=== PATIENT | female | born 1970 | race Caucasian/White ===

== ENCOUNTER 2020-04-27 14:48 | Emergency (ER) | payer OTHER ==
[2020-04-27] MEDS ORDERED: Acetaminophen/HYDROcodone 325-5 MG Tab PO ONE (15:36)
[2020-04-27] MEDS ORDERED: Diphtheria,Pertussis(Acell),Tetanus Vaccine 0.5 ML SDV IM ONE (15:36)
[2020-04-27] MEDS ORDERED: Diphtheria,Pertussis(Acell),Tetanus Vaccine 0.5 ML Syringe ONE (15:40)
--- NOTE | 2020-04-27 16:07 | EDM.PDOC ---
ED HPI GENERAL MEDICAL PROBLEM - General Chief Complaint: Upper Extremity Injury/Pain Stated Complaint: FALL/RIB AND SHOULDER PAIN Time Seen by Provider: 04/27/20 14:49 Source of Information: Reports: Patient History Limitations: Reports: No Limitations - History of Present Illness INITIAL COMMENTS - FREE TEXT/NARRATIVE: HISTORY AND PHYSICAL: History of present illness: Patient is a 49-year-old female who presents to the emergency room with complaints of right shoulder and right rib pain post fall 9 days ago. She states she was getting up out of bed when she fell hitting her right side of her face, right shoulder and right lateral chest wall. She reports that the fall occurred in the middle of the night and "not sure what really happened". She has been taking Tylenol and ibuprofen [id number] and has no concerns with her head or facial bones. The right shoulder and right chest wall continue to be quite painful, concerned she could have fractures. Patient denies any fever, chills, headache, change in vision, syncope or near syncope. Denies any chest pain, back pain, shortness of breath or cough. Denies any abdominal pain, nausea, vomiting, diarrhea, constipation or dysuria. Has not noted any blood in urine or stool. Patient has been eating and drinking appropriately. Review of systems: As per history of present illness and below otherwise all systems reviewed and negative. Past medical history: As per history of present illness and as reviewed below otherwise noncontributory. Surgical history: As per history of present illness and as reviewed below otherwise noncontributory. Social history: See social history for further information Family history: As per history of present illness and as reviewed below otherwise noncontributory. Physical exam: General: Well developed and well nourished. Alert and orientated x 3. Nontoxic in appearance and in no acute distress. Vital signs are stable and have been reviewed by me. Nursing notes were reviewed. HEENT: Healing bruising and soft tissue swelling along the right side of face, jaw and neck. Mild tenderness along the right lateral brow bone. No crepitus, normocephalic, pupils equal and reactive bilaterally, no ocular impingement, no pain with ocular movement, negative for conjunctival pallor or scleral icterus. Mucous membranes moist, teeth intact, no oral injury. TMs normal bilaterally, throat clear, neck supple, nontender, trachea midline. No drooling or trismus noted. No meningeal signs. No hot potato voice noted. Lungs: Clear to auscultation bilaterally. No wheezes, rales, or rhonchi. Right lateral chest wall pain with healing bruising. Normal work of breathing, no accessory muscles used. Heart: S1S2, regular rate and rhythm without overt murmur, gallops, or rubs. No JVD. No peripheral edema Abdomen: Soft, nondistended, nontender. Normoactive bowel sounds. Negative for masses or costovertebral tenderness. C-spine/Back: No pinpoint vertebral tenderness upon palpation. No crepitus, step-offs or obvious deformities. Patient is ambulatory into the emergency room without difficulty or deficit. Able to rock back on heels and walk on toes. Denies any urinary or fecal incontinence. Denies any numbness, tingling or saddle paresthesia. No concerns of serious infection, fracture or cord compression, or cauda equina syndrome. Deep tendon reflexes brisk bilaterally. Skin: Intact, warm, dry. No lesions or rashes noted. Hematologic: No petechiae or purpra. Mucosa appropriate color and normal nail bed color and refill. Extremities: Limited ROM of right shoulder, unable to lift front/laterally more than 30 degrees. She has good rotation of the shoulder and able to grasp strongly. No pain of distal humerous, elbow, forearm, wrist, or hand. Strong radial pulses with good cap refill. Otherwise she moves all extremities without difficulty or deficits. No pain with palpation elsewhere. Neurovascular unremarkable. Neuro: Awake, alert, oriented. Cranial nerves II through XII unremarkable. Cerebellum unremarkable. Motor and sensory unremarkable throughout. Exam nonfocal. Psychiatric: Mood and affect are appropriate. Normal thought process. Answering questions appropriately. Notes: *This patient was seen and evaluated during the 2019 SARS-CoV-2 novel coronavirus pandemic period. Community viral transmission is ongoing at time of this encounter and the emergency department is operating under pandemic response procedures. There is nondisplaced fracture in the anterior right 5th rib. There is a mildly displaced fracture of the humeral head present involving the base of the greater tuberosity. There is an avulsion fracture involving the greater tuberosity of the humeral head noted. Head CT shows no evidence of acute infarction, intracranial hemorrhage, or mass-effect seen. Maxillofacial bone CT shows a nondisplaced left nasal bone fracture noted. Patient is most comfortable in a sling. Patient will wear this until she follows up with the orthopedic provider. I have talked with the patient about today's findings, in addition to providing specific details for plan of care. Reassessment at the time of disposition demonstrates that the patient is in no acute distress. The patient is stable for discharge, counseling was provided and we discussed in great detail signs and symptoms that would prompt them to return to the Emergency Depa rtment. Medication, follow up and supportive care measures were reviewed and discussed. Voices understanding and is agreeable to plan of care. Denies any further questions or concerns at this time. Diagnostics: Maxillofacial/Head CT, Chest x-ray, shoulder x-ray Therapeutics: Tdap, Crawford, Sling Prescription: Percocet (#20) Impression: Fall Nondisplaced rib fracture, right Humeral head fracture, right Nasal bone fracture Plan: 1. You have a fractured rib, nasal bone and humeral head fracture. Rest, ice and elevate as able. Please wear the sling as directed. If your symptoms should worsen, new symptoms develop or any of the signs and symptoms we discussed should arise please return to the emergency room or call 911 (if needed). 2. You can alternate Tylenol and ibuprofen as needed for pain and fever management. Crawford for moderate to severe pain. 3. We encourage you to follow up with Orthopedics in the next few days for re- evaluation and further care/management. I would call first thing tomorrow to set up your follow up appointment. Definitive disposition and diagnosis as appropriate pending reevaluation and review of above. shoulder Pain Score (Numeric/FACES): 6 - Related Data Allergies Allergy/AdvReac Type Severity Reaction Status Date / Time Sulfa (Sulfonamide Allergy Hives Verified 04/27/20 15:57 Antibiotics) Home Meds: Home Meds Acetaminophen/oxyCODONE [Percocet 325-5 MG] 1 - 2 each PO Q6HR PRN #20 tab 04/27/20 [Rx] Naloxone HCl [Narcan] 4 mg NS ONETIME PRN #1 spray 04/27/20 [Rx] Ondansetron [Zofran ODT] 4 mg PO Q6H PRN #8 tab.dis 04/27/20 [Rx] Review of Systems - Review of Systems Review Of Systems: Comprehensive ROS is negative, except as noted in HPI. ED EXAM, GENERAL - Physical Exam Exam: See Below (See dictation) Course - Vital Signs Last Recorded V/S: Last Vital Signs Temp 96.6 F L 04/27/20 15:52 Pulse 101 H 04/27/20 15:52 Resp 16 04/27/20 15:52 BP 162/103 H 04/27/20 15:52 Pulse Ox 98 04/27/20 15:52 - Orders/Labs/Meds Orders: Active Orders 24 hr Category Date Time Status Vaccines to be Administered [RC] PER UNIT ROUTINE Care 04/27/20 15:36 Active DME for Discharge [COMM] Stat Oth 04/27/20 17:16 Ordered Meds: Medications Discontinued Medications Generic Name Dose Route Start Last Admin Trade Name Kiko PRN Reason Stop Dose Admin Hydrocodone Bitart/Acetaminophen 1 tab 04/27/20 15:36 04/27/20 15:42 Crawford 325-5 Mg PO 04/27/20 15:37 1 tab ONETIME ONE Administration Diphtheria/Tetanus/Acell Pertussis 0.5 ml 04/27/20 15:36 04/27/20 15:43 Boostrix IM 04/27/20 15:37 0.5 ml .ONCE ONE Administration Diphtheria/Tetanus/Acell Pertussis Confirm 04/27/20 15:40 04/27/20 15:46 Boostrix Administered 04/27/20 15:41 Not Given Dose 0.5 ml .ROUTE .STK-MED ONE Departure - Departure Time of Disposition: 17:26 Disposition: Home, Self-Care 01 Clinical Impression: Fall Qualifiers: Encounter type: initial encounter Qualified Code(s): W19.XXXA - Unspecified fall, initial encounter Head injury Qualifiers: Encounter type: initial encounter Qualified Code(s): S09.90XA - Unspecified injury of head, initial encounter Rib fracture Qualifiers: Encounter type: initial encounter Rib fracture type: single rib Fracture type: closed Laterality: right Qualified Code(s): S22.31XA - Fracture of one rib, right side, initial encounter for closed fracture Humerus head fracture Qualifiers: Encounter type: initial encounter Fracture type: closed Laterality: right Qualified Code(s): S42.291A - Other displaced fracture of upper end of right humerus, initial encounter for closed fracture Nasal bone fracture Qualifiers: Encounter type: initial encounter Fracture type: closed Qualified Code(s): S02.2XXA - Fracture of nasal bones, initial encounter for closed fracture - Discharge Information Prescriptions: Naloxone HCl [Narcan] 4 mg NS ONETIME PRN #1 spray PRN Reason: Other Acetaminophen/oxyCODONE [Percocet 325-5 MG] 1 - 2 each PO Q6HR PRN #20 tab PRN Reason: Pain Ondansetron [Zofran ODT] 4 mg PO Q6H PRN #8 tab.dis PRN Reason: Nausea Instructions: Humerus Fracture Treated With Immobilization, [id number] Referrals: PCP,Not In Area [Primary Care Provider] - Forms: ED Department Discharge Additional Instructions: The following information is given to patients seen in the emergency department who are being discharged to home. This information is to outline your options for follow-up care. We provide all patients seen in our emergency department with a follow-up referral. The need for follow-up, as well as the timing and circumstances, are variable depending upon the specifics of your emergency department visit. If you don't have a primary care physician on staff, we will provide you with a referral. We always advise you to contact your personal physician following an emergency department visit to inform them of the circumstance of the visit and for follow-up with them and/or the need for any referrals to a consulting specialist. The emergency department will also refer you to a specialist when appropriate. This referral assures that you have the opportunity for follow-up care with a specialist. All of these measure are taken in an effort to provide you with optimal care, which includes your follow-up. Under all circumstances we always encourage you to contact your private physician who remains a resource for coordinating your care. When calling for follow-up care, please make the office aware that this follow-up is from your recent emergency room visit. If for any reason you are refused follow-up, please contact the [facility] Emergency Department at and asked to speak to the emergency department charge nurse. [facility] [address] [place] [id number] [facility] - [facility] Professional Building [address] [place] [address], [address] [place] [address] Thank you for choosing the [facility] emergency department in [place] for your medical needs today. It was a pleasure caring for you. Today you were seen in the emergency department for injuries after a fall. 1. You have a fractured rib, nasal bone and humeral head (shoulder) fracture. Rest, ice and elevate as able. Please wear the sling as directed. If your symptoms should worsen, new symptoms develop or any of the signs and symptoms we discussed should arise please return to the emergency room or call 911 (if needed). 2. You can alternate Tylenol and ibuprofen as needed for pain and fever management. Crawford for moderate to severe pain. 3. We encourage you to follow up with Orthopedics in the next few days for re- evaluation and further care/management. I would call first thing tomorrow to set up your follow up appointment. Sepsis Event Note (ED) - Focused Exam Vital Signs: Vital Signs Temp Pulse Resp BP Pulse Ox 04/27/20 15:52 96.6 F L 101 H 16 162/103 H 98 - My Orders Last 24 Hours: My Active Orders 04/27/20 15:36 Vaccines to be Administered [RC] PER UNIT ROUTINE 04/27/20 17:16 DME for Discharge [COMM] Stat - Assessment/Plan Last 24 Hours: My Active Orders 04/27/20 15:36 Vaccines to be Administered [RC] PER UNIT ROUTINE 04/27/20 17:16 DME for Discharge [COMM] Stat
--- NOTE | 2020-04-27 16:47 | CR ---
INDICATION: Shoulder injury from fall TECHNIQUE: Shoulder radiograph 3 views right COMPARISON: None FINDINGS: Bone: There is a mildly displaced fracture of the humeral head present involving the base of the greater tuberosity. Joint: The glenohumeral joint is unremarkable. The acromioclavicular joint is unremarkable. Soft tissue: Unremarkable. The visualized hemithorax is unremarkable in appearance. No radiopaque foreign bodies are seen. IMPRESSION: 1. There is a mildly displaced fracture of the humeral head present involving the base of the greater tuberosity. Dictated by Neil Fraga MD @ 04/27/2020 4:47:12 PM Dictated by: Neil Fraga MD @ 04/27/2020 16:47:17 (Electronically Signed)
--- NOTE | 2020-04-27 16:49 | CR ---
INDICATION: Chest wall injury from fall, right posterior bruising TECHNIQUE: Chest radiograph, Rib radiographs 3 views right COMPARISON: None FINDINGS: Mediastinum: The mediastinum is normal in appearance. The heart silhouette is normal in size and morphology. Lung: Both lungs are unremarkable in appearance. No sign of pleural effusion seen. No pneumothorax is identified. Ribs and bones: The right humeral head fracture fragment is partially visualized. This is discussed on separate report. There is nondisplaced fracture in the anterior right 5th rib. Soft tissue: Unremarkable. IMPRESSION: 1. There is nondisplaced fracture in the anterior right 5th rib. Dictated by Neil Fraga MD @ 04/27/2020 4:49:23 PM Dictated by: Neil Fraga MD @ 04/27/2020 16:49:32 (Electronically Signed)
--- NOTE | 2020-04-27 16:49 | CR ---
INDICATION: Humerus injury from fall TECHNIQUE: Humerus radiograph 2 views right on 4 films COMPARISON: None FINDINGS: Bone: There is an avulsion fracture involving the greater tuberosity of the humeral head noted. Joint: The visualized glenohumeral and elbow joints are unremarkable, but the elbow joint is not profiled. If there is pain or tenderness in this region, dedicated views of the elbow are recommended. Soft tissue: The visualized hemithorax and soft tissues are unremarkable in appearance. No radiopaque foreign bodies are seen. IMPRESSION: 1. There is an avulsion fracture involving the greater tuberosity of the humeral head noted. Dictated by Neil Fraga MD @ 04/27/2020 4:48:03 PM Dictated by: Neil Fraga MD @ 04/27/2020 16:48:05 (Electronically Signed)
--- NOTE | 2020-04-27 17:04 | CT ---
INDICATION: Status post head injury from fall for 9 days TECHNIQUE: CT Head without i.v. contrast. Coronal and sagittal reformats were obtained. COMPARISON: None FINDINGS: CSF space: The ventricles are normal for age. Brain: No evidence of mass, acute infarction or hemorrhage is seen. No mass-effect or midline shift is seen. The brain parenchyma is otherwise normal in appearance with preservation of the santana-white matter junction. Calvarium: The visualized paranasal sinuses are well aerated. The mastoid air cells are clear. The visualized orbits are grossly unremarkable. The calvarium is unremarkable in appearance with no fractures identified. A soft tissue hematoma is noted over the right orbital ridge. IMPRESSION: 1. No evidence of acute infarction, intracranial hemorrhage, or mass-effect seen. Please note that all CT scans at this facility use dose modulation, iterative reconstruction, and/or weight-based dosing when appropriate to reduce radiation dose to as low as reasonably achievable. Dictated by: Neil Fraga MD @ 04/27/2020 17:02:48 (Electronically Signed)
--- NOTE | 2020-04-27 17:14 | CT ---
INDICATION: Status post face injury from fall for 9 days TECHNIQUE: CT maxillofacial without i.v. contrast. Coronal and sagittal reformats were obtained. COMPARISON: None FINDINGS: Bone: This is a nondisplaced left nasal bone fracture noted. The remainder of the facial bones and mandible are unremarkable in appearance. Joint: The temporomandibular joints are unremarkable in appearance. Sinus: The sinuses are well-aerated with no significant mucosal thickening or retained secretions seen. Bilateral aerated cristian bullosa are noted. The ostiomeatal units are patent. The nasal turbinates are normal. The nasal septum is midline and intact. Orbit: The visualized orbits are grossly unremarkable. Soft tissue: A moderate subcutaneous focal hematoma is present over the superior lateral right over ridge. The right submandibular gland is not visualized and may be surgically absent. IMPRESSION: 1. This is a nondisplaced left nasal bone fracture noted. Dictated by Neil Fraga MD @ 04/27/2020 5:13:17 PM Please note that all CT scans at this facility use dose modulation, iterative reconstruction, and/or weight-based dosing when appropriate to reduce radiation dose to as low as reasonably achievable. Dictated by: Neil Fraga MD @ 04/27/2020 17:13:28 (Electronically Signed)
== END 2020-04-27 17:41 | disposition home or self-care (01) ==
LOC: MW.ED 14:48
DX: S42.251A Displaced fracture of greater tuberosity of right humerus, initial encounter for closed fracture (principal); S22.31XA Fracture of one rib, right side, initial encounter for closed fracture; S02.2XXA Fracture of nasal bones, initial encounter for closed fracture; S09.90XA Unspecified injury of head, initial encounter; Z88.2 Allergy status to sulfonamides; Z23 Encounter for immunization; W06.XXXA Fall from bed, initial encounter
CPT/HCPCS: 70450; 70486; 71101; 73030; 73060; 90471; 90715; 99284; A9270

== ENCOUNTER 2020-05-10 10:22 | Day surgery (SDC) | payer MEDICAID, OTHER ==
[~2020-05-10 10:22] MED LIST: Dexamethasone 4 MG/ML 5 ML MDV ONE; Lactated Ringers 1,000 ML IV SCH; Lidocaine 2% 5 ML SDV ONE; Midazolam 1 MG/ML 2 ML SDV ONE; Ondansetron 4 MG/2 ML SDV ONE; Propofol 200 MG/20 ML SDV ONE; Rocuronium Bromide 50 MG/5 ML Syringe ONE; ceFAZolin 2 GM in Premix Bag 1 BAG IV SCH; fentaNYL 250 MCG/5 ML SDV ONE
--- NOTE | 2020-05-10 11:19 | PCM.PREANE ---
Preanesthetic Assessment - Anesthesia/Transfusion/Family Hx Anesthesia History: No Prior Anesthesia Family History of Anesthesia Reaction: No Transfusion History: No Prior Transfusion(s) - Review of Systems General: No Symptoms Pulmonary: No Symptoms Cardiovascular: No Symptoms Gastrointestinal: No Symptoms Neurological: No Symptoms Other: Reports: None - Physical Assessment NPO Status Date: 05/09/20 Height: 6 ft Weight: 77.111 kg ASA Class: 2 Mental Status: Alert & Oriented x3 Airway Class: Mallampati = 2 Dentition: Reports: Normal Dentition ROM/Head Extension: Full Lungs: Clear to Auscultation, Normal Respiratory Effort Cardiovascular: Regular Rate, Regular Rhythm - Allergies Allergies/Adverse Reactions: Allergies Allergy/AdvReac Type Severity Reaction Status Date / Time Sulfa (Sulfonamide Allergy Hives Verified 05/08/20 11:28 Antibiotics) - Blood Blood Available: No - Anesthesia Plan Pre-Op Medication Ordered: Anxiolytic - Acknowledgements Anesthesia Type Planned: General Anesthesia Pt an Appropriate Candidate for the Planned Anesthesia: Yes Alternatives and Risks of Anesthesia Discussed w Pt/Guardian: Yes Pt/Guardian Understands and Agrees with Anesthesia Plan: Yes Additional Comments: PMH: htn PLAN: get with isb for post op pain management PreAnesthesia Questionnaire HEENT History: Reports: Other (See Below) Other HEENT History: wears contacts Cardiovascular History: Reports: Hypertension Respiratory History: Reports: None Gastrointestinal History: Reports: Other (See Below) Other Gastrointestinal History: occasional heartburn Genitourinary History: Reports: None Musculoskeletal History: Reports: Fracture Other Musculoskeletal History: "multiple fractures" Neurological History: Reports: Head Trauma Other Neuro History: presently has bruise to face due to fall Psychiatric History: Reports: None Endocrine/Metabolic History: Reports: None Hematologic History: Reports: None Immunologic History: Reports: None Oncologic (Cancer) History: Reports: None Dermatologic History: Reports: None - Past Surgical History Head Surgeries/Procedures: Reports: None HEENT Surgical History: Reports: Other (See Below) Other HEENT Surgeries/Procedures: possible fx nose Cardiovascular Surgical History: Reports: None Respiratory Surgical History: Reports: None GI Surgical History: Reports: None Female Surgical History: Reports: None Endocrine Surgical History: Reports: None Neurological Surgical History: Reports: None Musculoskeletal Surgical History: Reports: None Oncologic Surgical History: Reports: None Dermatological Surgical History: Reports: None - SUBSTANCE USE Tobacco Use Status *Q: Never Tobacco User - HOME MEDS Home Medications: Home Meds Acetaminophen/oxyCODONE [Percocet 325-5 MG] 1 - 2 each PO Q6HR PRN #20 tab 04/27/20 [Rx] Ondansetron [Zofran ODT] 4 mg PO Q6H PRN #8 tab.dis 04/27/20 [Rx] Hydrocodone/Acetaminophen [Hydrocodone-Acetamin 5-325 mg] 1 tab PO ASDIRECTED PRN 05/08/20 [History] Omeprazole 40 mg PO ASDIRECTED PRN 05/08/20 [History] lisinopriL [Lisinopril] 20 mg PO DAILY 05/08/20 [History] - CURRENT (IN HOUSE) MEDS Current Meds: Current Medications Lactated Ringer's (Ringers, Lactated) 1,000 mls @ 100 mls/hr IV ASDIRECTED LISA Cefazolin Sodium/Dextrose 2 gm (/ Premix) 50 mls @ 100 mls/hr IV ONCALL LISA Discontinued Medications Dexamethasone (Dexamethasone) Confirm Administered Dose 20 mg .ROUTE .STK-MED ONE Stop: 05/10/20 09:10 Fentanyl (Sublimaze) Confirm Administered Dose 250 mcg .ROUTE .STK-MED ONE Stop: 05/10/20 09:08 Lidocaine (Xylocaine-Mpf 2%) Confirm Administered Dose 5 ml .ROUTE .STK-MED ONE Stop: 05/10/20 09:12 Midazolam HCl (Versed 1 Mg/Ml) Confirm Administered Dose 2 mg .ROUTE .STK-MED ONE Stop: 05/10/20 09:08 Ondansetron HCl (Zofran) Confirm Administered Dose 4 mg .ROUTE .STK-MED ONE Stop: 05/10/20 09:12 Propofol (Diprivan 20 Ml) Confirm Administered Dose 200 mg .ROUTE .STK-MED ONE Stop: 05/10/20 09:08 Rocuronium [place] (Rocuronium [place]) Confirm Administered Dose 50 mg .ROUTE .STK-MED ONE Stop: 05/10/20 09:10
[2020-05-10] MEDS ORDERED: Dexamethasone 4 MG/ML 5 ML MDV ONE (11:21)
[2020-05-10] MEDS ORDERED: Bupivacaine 0.25% 10 ML SDV ONE (11:23)
--- NOTE | 2020-05-10 12:15 | PCM.SN.2 ---
- Free Text/Narrative Note: procedure note. interscalene block. pt identified. rodrigue and side re confirmed. skin prep with alcohol. skin analgesia with bupiv, needle entered interscalene groove. + twitch in supraspinatus muscle. twitch extinguished at 0.3 ma. dosed with 20 ml of 0.25% bupivicain with 8 mg of dexamethasone in 5 ml increments. monitored with spo2, and ekg leads. no comps.
[2020-05-10] MEDS ORDERED: Sodium Chloride 0.9% 20 ML ONE ×2 (12:18→12:55)
[2020-05-10] MEDS ORDERED: ceFAZolin 1 GM Vial ONE ×2 (12:18→13:52)
[2020-05-10] MEDS ORDERED: EPINEPHrine 1:10,000 1 MG/10 ML Syringe IVPUSH PRN (13:12)
[2020-05-10] MEDS ORDERED: Albuterol 0.083% 2.5 MG/3 ML Neb Soln NEB PRN (13:12)
[2020-05-10] MEDS ORDERED: Naloxone 0.4 MG/ML Syringe IVPUSH PRN (13:12)
[2020-05-10] MEDS ORDERED: Atropine 0.1 MG/ML 10 ML Syringe IVPUSH PRN ×2 (13:12)
[2020-05-10] MEDS ORDERED: 50% Dextrose in Water 50 ML Syringe IVPUSH PRN (13:12)
[2020-05-10] MEDS ORDERED: Bupivacaine 0.5% 10 ML SDV ONE ×2 (13:17→14:24)
[2020-05-10] MEDS ORDERED: fentaNYL 100 MCG/2 ML SDV ONE (13:46)
--- NOTE | 2020-05-10 14:06 | PCM.OPNOTE ---
- General Post-Op/Procedure Note Date of Surgery/Procedure: 05/10/20 Operative Procedure(s): orif right greater tuberosity fracture Pre Op Diagnosis: right greater tuberosity fracture Post-Op Diagnosis: Same Anesthesia Technique: General ET Tube Primary Surgeon: Orlin Young Secondary Surgeon: Nitesh Wang Vibrator Operator: Hermila Linares EBL in mLs: 50 Complications: None Condition: Good
[2020-05-10] MEDS: fentaNYL 100 MCG/2 ML SDV IVPUSH PRN ×2 (14:34→14:41)
[2020-05-10] MEDS ORDERED: Acetaminophen 1,000 MG in Premix Bag 1 BAG IV ONE (14:36)
--- NOTE | 2020-05-10 15:21 | OR ---
SURGEON: Orlin Young DATE OF PROCEDURE: 05/10/2020 PREOPERATIVE DIAGNOSIS: Right greater tuberosity fracture. POSTOPERATIVE DIAGNOSIS: Right greater tuberosity fracture. PROCEDURE: Open reduction and internal fixation, right greater tuberosity fracture. PRIMARY SURGEON: Orlin Young DO SECONDARY SURGEON: Co-surgeon: Jan Wang MD CUSTOMER LEADER: KENTRELL Moreland ROLE OF CUSTOMER LEADER: Nurse practitioner, KENTRELL Moreland, played an essential role in assisting in this case, helping to position the patient, retract structures as needed, as well as suturing and cutting sutures as indicated. Her presence improved patient's safety and decreased operative time. ANESTHESIA: General endotracheal intubation. FLUID: Lactated Ringer's solution. ESTIMATED BLOOD LOSS: 50 mL. COMPLICATION: None. SPECIMEN: None. DISCHARGE DISPOSITION: Stable to PACU. HISTORY AND INDICATIONS FOR THE PROCEDURE: The patient was seen preoperatively in the clinic. She had suffered the above- mentioned fracture, which was confirmed on radiographs. Risks and goals of the procedure were explained to the patient and informed consent was obtained. DETAILS OF PROCEDURE: The patient was seen preoperatively by myself and the Anesthesia staff in the preoperative holding area where the operative site was marked. She was brought to the operative suite. After an interscalene block, general endotracheal intubation was performed. All extremities were found to be well padded. The right upper extremity was then prepped and draped in a sterile manner. Time-out was called identifying the correct patient, the correct procedure, the correct site, and that antibiotics were done within appropriate period of time. Deltopectoral approach was made. An incision was made just proximal to the coracoid down to the deltoid insertion medially. Bleeding was controlled with Bovie electrocautery. Once we went through the subcutaneous fat, we then used Metzenbaums to carefully elevate the fat and then used a Bovie to go through the tissue. We used this so we could identify the cephalic vein, which was then taken medially. I extended this proximally and then distally as to take tension off the cephalic vein. Our tendon from the conjoined tendon to the humerus was identified and divided using Metzenbaums. We were then able to see the hematoma under the tissue. I then went using Metzenbaums through the fracture site and then used some rongeur to remove some extra callus and soft tissue related to the hematoma. I also used Bovie electrocautery and pickups to remove some of the bursa. The fracture was identified. We then made two #5 Ethibond suture passes anteriorly and posteriorly through the cuff and used this as tension to perform one distal pass and one proximal pass for each suture. I then elevated it and then used rongeurs to remove any extra soft tissue and callus formation. We were down to cancellous bone at that point. We then identified an area just proximal to the pectoralis major insertion and then used Bovie electrocautery to go down to the bone. We then used a 2.7 drill bit and then drilled and then placed 4.0 x 38 mm cancellous screw with a washer, but did not sink it all the way down. We then tied the anterior sutures and then the posterior sutures under great tension and then sunk the screw, and we then took internal and external rotation radiographs confirming good placement of the screw and fracture reduction. We then copiously irrigated with Betadine infused irrigation. I then closed the deltopectoral interval with care not to injure the cephalic vein with interrupted [id number] Vicryl sutures. I then irrigated again and then closed the deep subcu with 0 interrupted sutures of Vicryl and then subcutaneous with 2-0 Vicryl sutures and my assist closed the skin with 2-0 nylon sutures followed by a Betadine-soaked Adaptic, fluffs, and Medipore tape. The patient was allowed to awaken from general anesthesia, placed into a sling, and then allowed to go into the PACU in stable condition. [id number] / MODL /[id number]
--- NOTE | 2020-05-10 15:52 | PCM.POSTAN ---
POST ANESTHESIA ASSESSMENT - MENTAL STATUS Mental Status: Alert, Oriented - VITAL SIGNS Vital Signs: Last Vital Signs Temp 98.2 F 05/10/20 14:20 Pulse 114 H 05/10/20 15:05 Resp 9 L 05/10/20 15:05 BP 153/97 H 05/10/20 15:05 Pulse Ox 95 05/10/20 15:05 - RESPIRATORY Respiratory Status: Respiratory Rate WNL, Airway Patent, O2 Saturation Stable - CARDIOVASCULAR CV Status: Pulse Rate WNL, Blood Pressure Stable - GASTROINTESTINAL GI Status: No Symptoms - POST OP HYDRATION Hydration Status: Adequate & Stable
--- NOTE | 2020-05-10 17:09 | PCM48HPAN ---
Post Anesthesia Note - EVALUATION WITHIN 48HRS OF ANESTHETIC Vital Signs in Normal Range: Yes Patient Participated in Evaluation: Yes Respiratory Function Stable: Yes Airway Patent: Yes Cardiovascular Function Stable: Yes Hydration Status Stable: Yes Pain Control Satisfactory: Yes (in pain but reports tolerable discussed her pain med regimen at home) Nausea and Vomiting Control Satisfactory: Yes (slightly nauseated but tolerable) Mental Status Recovered: Yes Vital Signs: Last Vital Signs Temp 97.2 F 05/10/20 15:10 Pulse 102 H 05/10/20 16:40 Resp 16 05/10/20 16:40 BP 149/89 H 05/10/20 16:40 Pulse Ox 95 05/10/20 16:40 - COMMENTS/OBSERVATIONS Free Text/Narrative:: no anesthesia issues
--- NOTE | 2020-05-12 21:01 | CR ---
Indication: OR images. Technique: Single-view of the right shoulder. Comparison: None Findings: Deformity of the lateral aspect of the right humeral head is identified, suggesting previous dislocation. Impression: Intraoperative image obtained. Dictated by Sugey Parker MD @ May 12 2020 8:59PM Signed by Dr. Sugey Parker @ May 12 2020 8:59PM
== END 2020-05-10 17:35 | disposition home or self-care (01) ==
LOC: MW.SDS 10:22
PROVIDERS: ATTEND Orthopaedic Surgery
DX: S42.251A Displaced fracture of greater tuberosity of right humerus, initial encounter for closed fracture (principal); I10 Essential (primary) hypertension; Z88.2 Allergy status to sulfonamides; Z79.899 Other long term (current) drug therapy; E55.9 Vitamin D deficiency, unspecified; X58.XXXA Exposure to other specified factors, initial encounter
CPT/HCPCS: 23630; 76000; C1713; J0131; J0690; J1100; J2250; J2704; J3010; J3490; J7120; 01630; J2405

== ENCOUNTER 2021-05-17 17:01 | Emergency (ER) | payer MEDICAID | END 2021-05-17 17:57 | disposition home or self-care (01) | LOC: MW.ED 17:01 | DX: B02.9 Zoster without complications (principal); I10 Essential (primary) hypertension; Z88.2 Allergy status to sulfonamides; Z79.899 Other long term (current) drug therapy | CPT/HCPCS: 99282; 99283 ==

== ENCOUNTER 2021-08-23 08:07 | Day surgery (SDC) | payer MEDICAID ==
[~2021-08-23 08:07] MED LIST changes: -Dexamethasone 4 MG/ML 5 ML MDV ONE; -Midazolam 1 MG/ML 2 ML SDV ONE; -Ondansetron 4 MG/2 ML SDV ONE; -Rocuronium Bromide 50 MG/5 ML Syringe ONE; +Sodium Chloride 0.9% 10 ML Syringe FLUSH PRN; +Sodium Chloride 0.9% 2.5 ML Syringe FLUSH PRN; +Sodium Chloride 0.9% 20 ML SDV IV PRN; -ceFAZolin 2 GM in Premix Bag 1 BAG IV SCH; +fentaNYL 100 MCG/2 ML SDV ONE; -fentaNYL 250 MCG/5 ML SDV ONE
[2021-08-23] MEDS ORDERED: Ondansetron 4 MG/2 ML SDV ONE (09:45)
== END 2021-08-23 11:00 | disposition home or self-care (01) ==
LOC: MW.SDS 08:07
PROVIDERS: ATTEND Surgery
DX: Z12.11 Encounter for screening for malignant neoplasm of colon (principal); D12.3 Benign neoplasm of transverse colon; K29.50 Unspecified chronic gastritis without bleeding; K21.00 Gastro-esophageal reflux disease with esophagitis, without bleeding; K29.80 Duodenitis without bleeding; K57.30 Diverticulosis of large intestine without perforation or abscess without bleeding; E55.9 Vitamin D deficiency, unspecified; Z88.2 Allergy status to sulfonamides; Z79.899 Other long term (current) drug therapy
CPT/HCPCS: 43239; 45380; J2405; J2704; J3010; J7120; 00813

== ENCOUNTER 2021-10-04 16:59 | Emergency (ER) | payer MEDICAID | END 2021-10-04 19:43 | disposition home or self-care (01) | LOC: MW.ED 16:59 | DX: S93.602A Unspecified sprain of left foot, initial encounter (principal); I10 Essential (primary) hypertension; Z88.2 Allergy status to sulfonamides; X50.1XXA Overexertion from prolonged static or awkward postures, initial encounter | CPT/HCPCS: 73630-26-LT; 73630-LT; 99282; 99283 ==

== ENCOUNTER 2023-03-04 18:38 | Observation (INO) | payer MEDICAID ==
[2023-03-04] MEDS ORDERED: Sodium Chloride 0.9% 500 ML IV ONE (19:19)
[2023-03-04] MEDS ORDERED: Sodium Chloride 0.9% 2.5 ML Syringe FLUSH PRN (19:19)
[2023-03-04] MEDS ORDERED: Sodium Chloride 0.9% 10 ML Syringe FLUSH PRN (19:19)
[2023-03-04 19:55] LABS: BASOPHILS ABSOLUTE AUTO 0.02 K/uL (0.00-0.20); BASOPHILS PERCENT AUTO 0.2 % (0.0-1.0); EOSINOPHILS ABSOLUTE AUTO 0.02 K/uL (0.00-0.45); EOSINOPHILS PERCENT AUTO 0.2 % (0.0-6.0); HEMATOCRIT 30.3 % (37.0-47.0); IMMATURE GRAN ABSOLUTE AUTO 0.03 K/uL (0.00-0.05); IMMATURE GRAN PERCENT AUTO 0.4 % (0.0-0.4); LYMPHOCYTES ABSOLUTE AUTO 2.15 K/uL (1.00-4.80); LYMPHOCYTES PERCENT AUTO 26.2 % (24.0-44.0); MEAN CORPUSCULAR HEMOGLOBIN 33.7 pg (28.0-32.0); MEAN CORPUSCULAR HGB CONC 36.3 g/dL (32.0-36.0); MEAN CORPUSCULAR VOLUME 92.9 fL (83.0-99.0); MEAN PLATELET VOLUME 9.6 fL (9.4-12.3); MONOCYTES ABSOLUTE AUTO 0.28 K/uL (0.00-0.80); MONOCYTES PERCENT AUTO 3.4 % (0.0-8.0); NEUTROPHILS ABSOLUTE AUTO 5.71 K/uL (1.80-7.70); NEUTROPHILS PERCENT AUTO 69.6 % (41.0-71.0); PLATELET COUNT,PLT 102 K/uL (150-400); RED BLOOD CELL COUNT 3.26 M/uL (4.10-5.30); WHITE BLOOD CELL COUNT,WBC 8.21 K/uL (3.9-11.3)
[2023-03-04 20:23] LABS: A/G RATIO 0.7 (0.9-1.6); ALBUMIN 2.7 g/dL (3.4-5.0); BILIRUBIN TOTAL 0.6 mg/dL (0.2-1.0); CALCIUM 7.8 mg/dL (8.5-10.1); CARBON DIOXIDE,CO2 31.8 mmol/L (21.0-32.0); CREATININE 0.9 mg/dL (0.6-1.0); EST CRCL DRUG DOSING (CG) 82.46 mL/min; MAGNESIUM 0.9 mg/dL (1.8-2.4); POTASSIUM,K 2.5 mmol/L (3.5-5.1); PROTEIN TOTAL,TP 6.4 g/dL (6.4-8.2); TSH ULTRASENSITIVE 3.23 uIU/mL (0.36-3.74)
[2023-03-04] MEDS ORDERED: Magnesium Sulfate/Water 2 GM in Premix Bag 1 BAG IV ONE (20:32)
[2023-03-04] MEDS ORDERED: Potassium Chloride 10% 20 MEQ/15 ML Soln 15 ML UD Cup PO ONE (21:03)
[2023-03-04] MEDS ORDERED: Lactated Ringers 1,000 ML IV SCH (21:15)
[2023-03-04 22:46] LABS: APPEARANCE,URINE CLEAR; BILIRUBIN,URINE NEGATIVE (NEGATIVE); COLOR,URINE YELLOW; GLUCOSE,URINE NEGATIVE (NEGATIVE); KETONES,URINE NEGATIVE (NEGATIVE); LEUKOCYTE ESTERASE,URINE NEGATIVE (NEGATIVE); NITRITE,URINE NEGATIVE (NEGATIVE); OCCULT BLOOD,URINE NEGATIVE (NEGATIVE); PROTEIN,URINE NEGATIVE (NEGATIVE); UROBILINOGEN,URINE 0.2 EU/dL (<2.0)
[2023-03-04 23:02] LABS: CREATININE,URINE RAND 14.7 mg/dL
[2023-03-04 23:29] LABS: CALCIUM 7.9 mg/dL (8.5-10.1); CARBON DIOXIDE,CO2 32.2 mmol/L (21.0-32.0); EST CRCL DRUG DOSING (CG) 74.22 mL/min; POTASSIUM,K 3.7 mmol/L (3.5-5.1)
[2023-03-04] MEDS ORDERED: Gabapentin 300 MG Cap PO ONE (23:31)
[2023-03-05] MEDS ORDERED: Sodium Chloride 0.9% 1,000 ML IV SCH (00:30)
[2023-03-05] MEDS ORDERED: LORazepam 2 MG/ML SDV IVPUSH PRN (00:33)
[2023-03-05] MEDS: Thiamine 200 MG/2 ML MDV IVPUSH SCH ×2 (01:37→09:16)
[2023-03-05 06:10] LABS: HEMATOCRIT 26.6 % (37.0-47.0); HEMOGLOBIN 9.5 g/dL (12.0-16.0); IMMATURE GRAN ABSOLUTE AUTO 0.02 K/uL (0.00-0.05); IMMATURE GRAN PERCENT AUTO 0.3 % (0.0-0.4); MEAN CORPUSCULAR HEMOGLOBIN 33.3 pg (28.0-32.0); MEAN CORPUSCULAR HGB CONC 35.7 g/dL (32.0-36.0); MEAN CORPUSCULAR VOLUME 93.3 fL (83.0-99.0); MEAN PLATELET VOLUME 9.9 fL (9.4-12.3); RED BLOOD CELL COUNT 2.85 M/uL (4.10-5.30); WHITE BLOOD CELL COUNT,WBC 6.22 K/uL (3.9-11.3)
[2023-03-05 06:44] LABS: CALCIUM 7.7 mg/dL (8.5-10.1); CARBON DIOXIDE,CO2 33.1 mmol/L (21.0-32.0); EST CRCL DRUG DOSING (CG) 74.22 mL/min; MAGNESIUM 1.4 mg/dL (1.8-2.4); PHOSPHORUS 2.4 mg/dL (2.6-4.7); POTASSIUM,K 3.2 mmol/L (3.5-5.1)
[2023-03-05 07:15] LABS: PLATELET COUNT,PLT 92 K/uL (150-400)
[2023-03-05] MEDS ORDERED: Potassium Chloride 20 MEQ Tab.ER PO ONE (08:13)
[2023-03-05] MEDS ORDERED: Folic Acid 1 MG/0.2 ML UD Syringe SUBCUT SCH (09:00)
[2023-03-05] MEDS ORDERED: Magnesium Sulfate/Water 2 GM in Premix Bag 1 BAG IV ONE (09:31)
[2023-03-05] MEDS ORDERED: Gabapentin 300 MG Cap PO ONE (11:45)
[2023-03-05] MEDS ORDERED: Phosphorus #1 250 MG Tab PO SCH (12:00)
[2023-03-05 12:43] LABS: CARBON DIOXIDE,CO2 30.2 mmol/L (21.0-32.0); EST CRCL DRUG DOSING (CG) 74.22 mL/min; MAGNESIUM 1.8 mg/dL (1.8-2.4); PHOSPHORUS 2.5 mg/dL (2.6-4.7); POTASSIUM,K 3.7 mmol/L (3.5-5.1)
== END 2023-03-05 14:45 | disposition home or self-care (01) ==
LOC: MW.ED 18:38 → MW.MS 21:19
PROVIDERS: ADMIT Internal Medicine; ATTEND Internal Medicine
DX: E87.1 Hypo-osmolality and hyponatremia (principal); I10 Essential (primary) hypertension; K21.9 Gastro-esophageal reflux disease without esophagitis; E87.6 Hypokalemia; D69.6 Thrombocytopenia, unspecified; E83.42 Hypomagnesemia; E83.39 Other disorders of phosphorus metabolism; Z86.16 Personal history of COVID-19; Z79.899 Other long term (current) drug therapy; Z88.2 Allergy status to sulfonamides
CPT/HCPCS: 36415; 70450; 70450-26; 71045; 71045-26; 80048; 80053; 80307; 81003; 82436; 82570; 83735; 84100; 84300; 84443; 84484; 84540; 85025; 85027; 93005; 93010; 96360; 99282; 99285-25; A9270-GY; J3411; J3475; J3490; J7030; J7040; J7120